=== PATIENT | male | born 1970 | race Caucasian/White ===

== ENCOUNTER 2021-08-26 11:36 | Emergency (ER) | payer SELFPAY ==
[2021-08-26 11:55] VITALS: BP 133/92; PULSE 95; TEMP 99; BMI 31.6
[2021-08-26] MEDS ORDERED: ACETAMINOPHEN 325 MG TABLET (FP) PO ONE (11:56)
[2021-08-26] MEDS ORDERED: ACETAMINOPHEN 325 MG TABLET (FP) ONE (12:07)
== END 2021-08-26 13:10 | disposition home or self-care (01) ==
LOC: FER 11:36
DX: S62.639A Displaced fracture of distal phalanx of unspecified finger, initial encounter for closed fracture (principal); S62.617A Displaced fracture of proximal phalanx of left little finger, initial encounter for closed fracture; Y04.0XXA Assault by unarmed brawl or fight, initial encounter; Y92.9 Unspecified place or not applicable
CPT/HCPCS: 73130-TC-LT-FY; 99284-25